=== PATIENT | female | born 2005 | race Two or more races ===

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

== ENCOUNTER 2025-03-25 08:11 | Outpatient (CLI) | payer OTHER ==
[~2025-03-25 08:11] MED LIST changes: +AMOX-CLAV 875-1 EAC1 PO; +MEDROLPACK PO; +PERCOCET 5-3251 EACH PO
== END 2025-03-25 08:19 | disposition home or self-care (01) ==
LOC: SONOGRAMA 08:11
PROVIDERS: ATTEND Obstetrics & Gynecology
DX: R10.20 Pelvic and perineal pain unspecified side (principal); R10.30 Lower abdominal pain, unspecified